=== PATIENT | male | born 1970 | race Caucasian/White ===

== ENCOUNTER 2021-09-11 16:14 | Observation (INO) | payer BC ==
[2021-09-11] MEDS ORDERED: Aspirin Chewable 81 MG TAB ONE (16:39)
[2021-09-11 17:00] LABS: #Eosinphils 0.6 thou/uL (0.0-0.7); #Lymphocytes 1.7 thou/uL (1.20-3.40); #Monocytes 0.6 thou/uL (0.11-0.59); #Neutrophils 3.8 thou/uL (1.40-6.50); %Basophils 0.4 % (0.0-1.0); %Eosinophils 9.3 % (0.0-10.0); %Lymphocytes 25.2 % (21.0-51.0); %Monocytes 9.2 % (0.0-10.0); %Neutrophils 55.9 % (42.0-75.0); Hemoglobin 19.3 g/dL (14.0-18.0); Mean Corpuscular HGB CONC 35.3 g/dL (32.0-36.0); Mean Corpuscular Hemoglobin 37.3 pg (27.0-31.0); Mean Platelet Volume 7.4 fL (7.4-10.4); Platelet Count 125 thou/uL (130-400); RBC Distribution Width 11.4 % (11.5-14.5); Red Blood Cell (RBC) Count 5.17 mill/uL (4.70-6.10); White Blood Cell (WBC) Count 6.8 thou/uL (4.8-10.8)
[2021-09-11] MEDS ORDERED: Ondansetron PF 4 MG/2 ML Vial ONE (17:01)
[2021-09-11] MEDS ORDERED: Nitroglycerin 2% Ointment 1 INCH/1 GM Packet ONE (17:01)
[2021-09-11] MEDS ORDERED: Morphine 4 MG/ML VIAL ONE (17:01)
[2021-09-11 17:11] LABS: MDiff Complete? YES; Macrocytosis SLIGHT = 6-15 cells (100X) (0-5/hpf); Platelet Morphology Comment Appears Decreased
[2021-09-11 17:22] LABS: ALT (SGPT) 55 U/L (8-55); AST (SGOT) 43 U/L (5-34); Albumin 4.2 g/dL (3.5-5.0); Alkaline Phosphatase 37 U/L (40-110); Anion Gap 15 mmol/L (10-20); BUN (Urea Nitrogen) 11 mg/dL (8.4-25.7); Bilirubin, Total 0.7 mg/dL (0.2-1.2); Calc. Creatinine Clearance 0 mL/min (70-130); Calcium 10.3 mg/dL (7.8-10.44); Carbon Dioxide 23 mmol/L (22-29); Chloride 102 mmol/L (98-107); Globulin 3.6 g/dL (2.4-3.5); Glucose 104 mg/dL (70-105); Lipase 98 U/L (8-78); Potassium 3.9 mmol/L (3.5-5.1); Protein, Total 7.8 g/dL (6.0-8.3); Sodium 136 mmol/L (136-145)
[2021-09-11 20:45] VITALS: BMI 27.8
[2021-09-11 20:50] LABS: Troponin I Less than 0.010 ng/mL (< 0.028)
[2021-09-11] MEDS ORDERED: Acetaminophen 325 MG TAB PO PRN (21:45)
[2021-09-11] MEDS ORDERED: Ondansetron PF 4 MG/2 ML Vial IVP PRN (21:45)
[2021-09-11] MEDS ORDERED: Ondansetron ODT 4 MG TAB SL PRN (21:45)
[2021-09-11] MEDS ORDERED: Nitroglycerin 0.4 MG TAB (25 Tab Bottle) SL PRN (21:53)
[2021-09-11] MEDS ORDERED: Acetaminophen 650 MG Suppository PR PRN (21:53)
[2021-09-11] MEDS ORDERED: Lorazepam 1 MG TAB PO PRN (22:38)
[2021-09-11] MEDS ORDERED: EFAVIRENZ PO SCH (22:39)
[2021-09-11] MEDS ORDERED: EMTRICITAB PO SCH (22:39)
[2021-09-11] MEDS ORDERED: TENOFOVIR PO SCH (22:39)
[2021-09-11] MEDS ORDERED: Emtricitabine/Tenofovir 200-300 MG TAB PO SCH (23:15)
[2021-09-11 23:26] LABS: Troponin I Less than 0.010 ng/mL (< 0.028)
[2021-09-11] MEDS ORDERED: Valsartan 80 MG TAB PO SCH (23:30)
[2021-09-12 05:44] LABS: Anion Gap 13 mmol/L (10-20); BUN (Urea Nitrogen) 11 mg/dL (8.4-25.7); Calc. Creatinine Clearance 109 mL/min (70-130); Calcium 8.8 mg/dL (7.8-10.44); Carbon Dioxide 24 mmol/L (22-29); Chloride 106 mmol/L (98-107); Glucose 100 mg/dL (70-105); Potassium 4.5 mmol/L (3.5-5.1); Sodium 138 mmol/L (136-145)
[2021-09-12 05:45] LABS: #Eosinphils 0.5 thou/uL (0.0-0.7); #Lymphocytes 1.7 thou/uL (1.20-3.40); #Monocytes 0.6 thou/uL (0.11-0.59); #Neutrophils 3.9 thou/uL (1.40-6.50); %Basophils 0.5 % (0.0-1.0); %Eosinophils 7.9 % (0.0-10.0); %Lymphocytes 25.5 % (21.0-51.0); %Monocytes 8.7 % (0.0-10.0); %Neutrophils 57.4 % (42.0-75.0); Hemoglobin 16.9 g/dL (14.0-18.0); Mean Corpuscular HGB CONC 33.7 g/dL (32.0-36.0); Mean Platelet Volume 7.5 fL (7.4-10.4); Platelet Count 112 thou/uL (130-400); RBC Distribution Width 11.4 % (11.5-14.5); Red Blood Cell (RBC) Count 4.69 mill/uL (4.70-6.10); White Blood Cell (WBC) Count 6.7 thou/uL (4.8-10.8)
[2021-09-12 07:03] LABS: Cardiac Risk 3.3 (Less than 4.5)
[2021-09-12] MEDS ORDERED: FLUoxetine HCl 20 MG CAP PO SCH (09:00)
[2021-09-12] MEDS ORDERED: Enoxaparin Sodium 40 MG/0.4 ML SYRINGE SC SCH (09:00)
[2021-09-12] MEDS ORDERED: Aspirin Chewable 81 MG TAB PO SCH (09:00)
[2021-09-12] MEDS ORDERED: ADENOSINE 60 MG/20 ML VIAL ONE (09:31)
[2021-09-12 11:34] VITALS: BP 158/88; TEMP 98.1
[2021-09-12] MEDS ORDERED: Dicyclomine 20 MG TAB PO SCH (15:00)
[2021-09-12] MEDS ORDERED: Emtricitabine/Tenofovir 200-300 MG TAB PO SCH (21:00)
[2021-09-12] MEDS ORDERED: Valsartan 80 MG TAB PO SCH (21:00)
[2021-09-12 21:03] LABS: SARS-CoV-2 PCR by NAA Not Detected (NotDetected)
== END 2021-09-12 14:42 | disposition home or self-care (01) ==
LOC: ERS 16:14 → 2SW 18:44
PROVIDERS: ADMIT Family Medicine; ATTEND Internal Medicine
DX: R07.2 Precordial pain (principal); D75.1 Secondary polycythemia; R74.01 Elevation of levels of liver transaminase levels; I45.10 Unspecified right bundle-branch block; I10 Essential (primary) hypertension; B18.1 Chronic viral hepatitis B without delta-agent; Z79.899 Other long term (current) drug therapy; Z88.8 Allergy status to other drugs, medicaments and biological substances; Z20.822 Contact with and (suspected) exposure to COVID-19
CPT/HCPCS: 36415; 71045; 78452; 80048; 80053; 80061; 83690; 83880; 84484; 85025; 93005; 93017; 94760; 96372; 96374; 96375; A9500; G0378; J0153; J1650; J2270; J2405; U0003; U0005

== ENCOUNTER 2021-10-05 17:30 | Outpatient (CLI) | payer BC ==
[2021-10-05 18:01] LABS: #Basophils 0.1 10x3/uL (0.0-0.2); #Eosinphils 0.6 10x3/uL (0.0-0.5); #Monocytes 0.8 10x3/uL (0.0-1.1); #Neutrophils 4.1 10x3/uL (1.5-8.4); %Basophils 0.7 % (0.0-2.0); %Lymphocytes 23.6 % (18.0-47.0); %Monocytes 11.3 % (0.0-10.0); %Neutrophils 56.1 % (40.0-75.0); Hemoglobin 16.6 g/dL (13.5-17.5); Mean Corpuscular HGB CONC 35.1 g/dL (32.0-36.0); Mean Corpuscular Hemoglobin 35.2 pg (27.0-33.0); Mean Corpuscular Volume 100.4 fl (81.2-95.1); Mean Platelet Volume 9.6 fl (7.4-10.4); Platelet Count 138 10x3/uL (150-450); RBC Distribution Width 12.1 % (11.5-14.5); Red Blood Cell (RBC) Count 4.71 10x6/uL (4.32-5.72); White Blood Cell (WBC) Count 7.3 10x3/uL (3.5-10.5)
[2021-10-05 18:21] LABS: ALT (SGPT) 54 U/L (8-55); AST (SGOT) 47 U/L (5-34); Albumin 4.3 g/dL (3.5-5.0); Alkaline Phosphatase 37 U/L (40-110); Anion Gap 14 mmol/L (10-20); BUN (Urea Nitrogen) 9 mg/dL (8.4-25.7); Bilirubin, Total 0.5 mg/dL (0.2-1.2); Calc. Creatinine Clearance 0 mL/min (70-130); Calcium 9.1 mg/dL (7.8-10.44); Carbon Dioxide 24 mmol/L (22-29); Chloride 104 mmol/L (98-107); Globulin 3.2 g/dL (2.4-3.5); Glucose 107 mg/dL (70-105); Lipase 216 U/L (8-78); Protein, Total 7.5 g/dL (6.0-8.3); Prothrombin Time 10.7 sec (9.5-12.1); Sodium 138 mmol/L (136-145)
[2021-10-05 18:44] LABS: Free T4 (Free Thyroxine) 0.9 ng/dL (0.70-1.48); Thyroid Stimulating Hormone 1.4302 uIU/mL (0.35-4.94)
[2021-10-06 00:24] LABS: SARS-CoV-2 PCR by NAA Not Detected (NotDetected)
== END 2021-10-05 17:31 | disposition home or self-care (01) ==
LOC: LABBT 17:30
PROVIDERS: ATTEND Internal Medicine Cardiovascular Disease
DX: Z01.812 Encounter for preprocedural laboratory examination (principal); R07.9 Chest pain, unspecified; Z20.822 Contact with and (suspected) exposure to COVID-19
CPT/HCPCS: 80053; 82105; 83690; 84439; 84443; 85025; 85610; U0003; U0005

== ENCOUNTER 2021-10-08 05:59 | Day surgery (SDC) | payer BC ==
[2021-10-06 09:39] VITALS: BMI 27.7
[2021-10-08] MEDS ORDERED: Lidocaine 1% (PF) 30 ML VIAL ONE (06:28)
[2021-10-08] MEDS ORDERED: Nitroglycerin 100MG/250ML BOT 250 ML ONE (06:32)
[2021-10-08] MEDS ORDERED: Heparin 10,000 UNITS/ 10 ML VIAL ONE (06:32)
[2021-10-08] MEDS ORDERED: Verapamil 5 MG/2 ML VIAL ONE (06:32)
[2021-10-08] MEDS ORDERED: Midazolam HCl 2 mg/2 ml Vial ONE (07:17)
[2021-10-08] MEDS ORDERED: Fentanyl 100 MCG/2 ML VIAL ONE (07:17)
[2021-10-08 07:26] LABS: Cardiac Risk 2.9 (Less than 4.5)
[2021-10-08] MEDS ORDERED: Iopamidol 370 76% 100 ML VIAL ONE (09:24)
== END 2021-10-08 10:28 | disposition home or self-care (01) ==
LOC: SDC 05:59
PROVIDERS: ATTEND Internal Medicine Cardiovascular Disease
PROC: 4A023N7 Measurement of Cardiac Sampling and Pressure, Left Heart, Percutaneous Approach (ICD-10-PCS; principal; 2021-10-08)
DX: R07.9 Chest pain, unspecified (principal); R06.02 Shortness of breath; I10 Essential (primary) hypertension; Z79.899 Other long term (current) drug therapy; Z88.8 Allergy status to other drugs, medicaments and biological substances
CPT/HCPCS: 80061; 93458; 99152; J1644; J2001; J2250; J3010

== ENCOUNTER 2021-10-25 08:28 | Outpatient (CLI) | payer BC ==
[2021-10-25] MEDS ORDERED: Magnevist 469MG/ML 20 ML VIAL ONE (15:07)
== END 2021-10-25 08:29 | disposition home or self-care (01) ==
LOC: MRI 08:28
PROVIDERS: ATTEND Internal Medicine
DX: B18.1 Chronic viral hepatitis B without delta-agent (principal); K52.9 Noninfective gastroenteritis and colitis, unspecified; K74.60 Unspecified cirrhosis of liver; R74.8 Abnormal levels of other serum enzymes; I85.00 Esophageal varices without bleeding; K76.6 Portal hypertension; D73.89 Other diseases of spleen
CPT/HCPCS: 74183; A9579

== ENCOUNTER 2022-03-31 06:00 | Day surgery (SDC) | payer BC ==
[2022-03-30 09:37] VITALS: BMI 29.7
[2022-03-31] MEDS ORDERED: fentaNYL Citrate/PF 100 MCG/2 ML SYRINGE ONE (06:36)
[2022-03-31] MEDS ORDERED: Lidocaine 2% PF 5 ML VIAL ONE (06:58)
[2022-03-31] MEDS ORDERED: Bupivacaine/Epinephrine 0.25% 30 ML VIAL ONE (06:58)
[2022-03-31] MEDS ORDERED: cefOXitin 2 GM VIAL ONE (07:19)
[2022-03-31] MEDS ORDERED: Sodium Chloride 0.9% 100 ML ONE (07:19)
[2022-03-31] MEDS ORDERED: Famotidine/PF 20 mg/2ml Vial ONE (07:21)
[2022-03-31] MEDS ORDERED: Midazolam HCl 2 mg/2 ml Vial ONE (07:21)
[2022-03-31] MEDS ORDERED: PHENYLEPHRINE-NS 100 MCG/ML 10 ML SYRINGE ONE (07:50)
[2022-03-31] MEDS ORDERED: PROPOFOL 200 MG/20 ML VIAL ONE (07:50)
[2022-03-31] MEDS ORDERED: Glycopyrrolate 0.2 MG/ML 5 ML SYRINGE ONE (07:50)
[2022-03-31] MEDS ORDERED: NEOSTIGMINE 3 MG/3 ML SYR 3 MG/3 ML SYRINGE ONE (07:50)
[2022-03-31] MEDS ORDERED: Dexamethasone 20 MG/5 ML VIAL ONE (07:50)
[2022-03-31] MEDS ORDERED: Ondansetron PF 4 MG/2 ML Vial ONE (07:50)
[2022-03-31] MEDS ORDERED: Rocuronium Bromide 10 MG/ML (10ML VIAL) ONE (07:50)
[2022-03-31] MEDS ORDERED: hydrALAZINE 20 MG/ML VIAL ONE (08:32)
[2022-03-31] MEDS ORDERED: FENTANYL 50 MCG/ML VIAL 50 MCG/ML VIAL ONE ×3 (08:43→09:21)
== END 2022-03-31 10:16 | disposition home or self-care (01) ==
LOC: SDC 06:00
PROVIDERS: ATTEND Surgery
PROC: 0DBP7ZX Excision of Rectum, Via Natural or Artificial Opening, Diagnostic (ICD-10-PCS; principal; 2022-03-31)
DX: D01.3 Carcinoma in situ of anus and anal canal (principal); K64.9 Unspecified hemorrhoids; Z79.899 Other long term (current) drug therapy; Z88.8 Allergy status to other drugs, medicaments and biological substances
CPT/HCPCS: 88305; 88341; 88342; J0360; J0694; J1100; J2001; J2250; J2405; J2704; J3010; J3490; S0028

== ENCOUNTER 2022-04-22 07:19 | Outpatient (CLI) | payer BC | END 2022-04-22 07:20 | disposition home or self-care (01) | LOC: ULT 07:19 | PROVIDERS: ATTEND Internal Medicine | DX: K62.82 Dysplasia of anus (principal); B18.1 Chronic viral hepatitis B without delta-agent; K74.60 Unspecified cirrhosis of liver; R19.7 Diarrhea, unspecified; K76.6 Portal hypertension | CPT/HCPCS: 76700 ==

== ENCOUNTER 2022-05-11 08:22 | Outpatient (CLI) | payer BC ==
[2022-05-11] MEDS ORDERED: Iopamidol 370 76% 100 ML VIAL ONE (11:07)
== END 2022-05-11 08:23 | disposition home or self-care (01) ==
LOC: CT 08:22
PROVIDERS: ATTEND Student in an Organized Health Care Education/Training Program
DX: K11.8 Other diseases of salivary glands (principal)
CPT/HCPCS: 70491; Q9967

== ENCOUNTER 2022-05-26 15:17 | Outpatient (CLI) | payer BC ==
[2022-05-26 15:53] LABS: Hemoglobin 15.3 g/dL (13.5-17.5); Mean Corpuscular HGB CONC 35.4 g/dL (32.0-36.0); Mean Corpuscular Hemoglobin 34.9 pg (27.0-33.0); Mean Corpuscular Volume 98.4 fl (81.2-95.1); Mean Platelet Volume 9.8 fl (7.4-10.4); Platelet Count 117 10x3/uL (150-450); RBC Distribution Width 12.2 % (11.5-14.5); Red Blood Cell (RBC) Count 4.39 10x6/uL (4.32-5.72)
[2022-05-26 15:56] LABS: INR-International Normal Ratio 1.1; PTT 25.2 sec (22.0-33.0); Prothrombin Time 11.4 sec (9.5-12.1)
[2022-05-26 15:59] LABS: ALT (SGPT) 39 U/L (8-55); AST (SGOT) 41 U/L (5-34); Alkaline Phosphatase 35 U/L (40-110); Anion Gap 14 mmol/L (10-20); BUN (Urea Nitrogen) 16 mg/dL (8.4-25.7); Bilirubin, Direct 0.3 mg/dL (0.1-0.3); Bilirubin, Total 0.6 mg/dL (0.2-1.2); Calc. Creatinine Clearance 0 mL/min (70-130); Calcium 8.7 mg/dL (7.8-10.44); Carbon Dioxide 22 mmol/L (22-29); Chloride 107 mmol/L (98-107); Estimated GFR 67; Glucose 99 mg/dL (70-105); Potassium 4.3 mmol/L (3.5-5.1); Protein, Total 6.9 g/dL (6.0-8.3); Sodium 139 mmol/L (136-145)
== END 2022-05-26 15:18 | disposition home or self-care (01) ==
LOC: LABBT 15:17
PROVIDERS: ATTEND Student in an Organized Health Care Education/Training Program
DX: Z01.818 Encounter for other preprocedural examination (principal); K11.8 Other diseases of salivary glands; R22.1 Localized swelling, mass and lump, neck; R09.81 Nasal congestion
CPT/HCPCS: 80048; 80076; 85027; 85610; 85730; 93005; 93010

== ENCOUNTER 2022-05-31 06:03 | Day surgery (SDC) | payer BC ==
[2022-05-26 13:24] VITALS: BMI 29.0
[2022-05-31] MEDS ORDERED: Lidocaine 1% (PF) 30 ML VIAL ONE (07:53)
[2022-05-31] MEDS ORDERED: EPINEPHrine 1 MG/ML AMP ONE (07:53)
[2022-05-31] MEDS ORDERED: Fentanyl 250 MCG/5 ML VIAL ONE (07:55)
[2022-05-31] MEDS ORDERED: CEFAZOLIN 2 GM VIAL ONE (08:01)
[2022-05-31] MEDS ORDERED: Sodium Chloride 0.9% 100 ML ONE (08:01)
[2022-05-31] MEDS ORDERED: NEOSTIGMINE 3 MG/3 ML SYR 3 MG/3 ML SYRINGE ONE (08:10)
[2022-05-31] MEDS ORDERED: Glycopyrrolate 0.2 MG/ML 5 ML SYRINGE ONE (08:10)
[2022-05-31] MEDS ORDERED: Dexamethasone 20 MG/5 ML VIAL ONE (08:10)
[2022-05-31] MEDS ORDERED: ePHEDrine 50 MG/ML VIAL ONE (08:10)
[2022-05-31] MEDS ORDERED: PHENYLEPHRINE-NS 100 MCG/ML 10 ML SYRINGE ONE (08:10)
[2022-05-31] MEDS ORDERED: Ondansetron PF 4 MG/2 ML Vial ONE ×2 (08:10)
[2022-05-31] MEDS ORDERED: Rocuronium Bromide 10 MG/ML (10ML VIAL) ONE (08:10)
[2022-05-31] MEDS ORDERED: PROPOFOL 200 MG/20 ML VIAL ONE (08:10)
[2022-05-31] MEDS ORDERED: Phenylephrine 10 MG/ML VIAL ONE (08:42)
[2022-05-31] MEDS ORDERED: Fentanyl 100 MCG/2 ML VIAL ONE (09:42)
== END 2022-05-31 11:30 | disposition home or self-care (01) ==
LOC: SDC 06:03
PROVIDERS: ATTEND Student in an Organized Health Care Education/Training Program
PROC: 0CB80ZZ Excision of Right Parotid Gland, Open Approach (ICD-10-PCS; principal; 2022-05-31)
DX: D11.0 Benign neoplasm of parotid gland (principal); J45.909 Unspecified asthma, uncomplicated; I10 Essential (primary) hypertension; Z79.899 Other long term (current) drug therapy; Z88.8 Allergy status to other drugs, medicaments and biological substances
CPT/HCPCS: 88307; C1776; J0171; J1100; J2001; J2370; J2405; J2704; J3010; J3490

== ENCOUNTER 2023-02-07 09:26 | Outpatient (CLI) | payer BC | END 2023-02-07 09:27 | disposition home or self-care (01) | LOC: ULT 09:26 | PROVIDERS: ATTEND Internal Medicine | DX: B18.1 Chronic viral hepatitis B without delta-agent (principal); K74.60 Unspecified cirrhosis of liver; K76.6 Portal hypertension; R19.7 Diarrhea, unspecified; R16.1 Splenomegaly, not elsewhere classified | CPT/HCPCS: 76700 ==

== ENCOUNTER 2023-08-15 08:52 | Emergency (ER) | payer BC ==
[2023-08-15 10:38] LABS: #Eosinphils 0.2 thou/uL (0.0-0.7); #Monocytes 0.5 thou/uL (0.11-0.59); #Neutrophils 2.9 thou/uL (1.40-6.50); %Basophils 0.6 % (0.0-1.0); %Eosinophils 4.4 % (0.0-10.0); %Lymphocytes 24.8 % (21.0-51.0); %Monocytes 10.8 % (0.0-10.0); Hematocrit 43.4 % (42.0-52.0); Hemoglobin 15.4 g/dL (14.0-18.0); Mean Corpuscular HGB CONC 35.5 g/dL (32.0-36.0); Mean Corpuscular Hemoglobin 35.2 pg (27.0-31.0); Mean Corpuscular Volume 99.3 fl (78.0-98.0); Mean Platelet Volume 10.7 fL (7.4-10.4); Platelet Count 113 10x3/uL (130-400); RBC Distribution Width 12.1 % (11.5-14.5); Red Blood Cell (RBC) Count 4.37 mill/uL (4.70-6.10)
[2023-08-15 10:54] LABS: ALT (SGPT) 25 U/L (8-55); AST (SGOT) 30 U/L (5-34); Albumin 3.5 g/dL (3.5-5.0); Alkaline Phosphatase 24 U/L (40-110); Anion Gap 15 mmol/L (10-20); BUN (Urea Nitrogen) 16 mg/dL (8.4-25.7); Bilirubin, Total 0.9 mg/dL (0.2-1.2); Calc. Creatinine Clearance 0 mL/min (70-130); Calcium 9.1 mg/dL (7.8-10.44); Carbon Dioxide 22 mmol/L (22-29); Chloride 100 mmol/L (98-107); Estimated GFR 40; Globulin 2.9 g/dL (2.4-3.5); Glucose 117 mg/dL (70-105); Magnesium 1.7 mg/dL (1.6-2.6); Potassium 3.7 mmol/L (3.5-5.1); Protein, Total 6.4 g/dL (6.0-8.3); Sodium 133 mmol/L (136-145)
[2023-08-15 11:10] LABS: CellaVision Operator ID LAB.KW3; Platelet Adequacy Comment Platelets Decreased; RBC Morphology Within Normal Limits
== END 2023-08-15 11:31 | disposition home or self-care (01) ==
LOC: ERS 08:52
DX: I95.9 Hypotension, unspecified (principal)
CPT/HCPCS: 71045; 80053; 83735; 84484; 85025; 93005; 96360; 96361

== ENCOUNTER 2024-06-10 20:18 | Emergency (ER) | payer BC ==
[2024-06-10] MEDS ORDERED: Ampicillin/Sulbactam 3 GM VIAL ONE (20:50)
[2024-06-10] MEDS ORDERED: Sodium Chloride 0.9% 100 ML ONE (20:50)
== END 2024-06-10 23:30 | disposition short-term general hospital (02) ==
LOC: ERS 20:18
DX: S01.112A Laceration without foreign body of left eyelid and periocular area, initial encounter (principal); S09.12XA Laceration of muscle and tendon of head, initial encounter; S09.90XA Unspecified injury of head, initial encounter; I10 Essential (primary) hypertension; W01.198A Fall on same level from slipping, tripping and stumbling with subsequent striking against other object, initial encounter
CPT/HCPCS: 70450; 70486; 96374; J0295

== ENCOUNTER 2025-05-21 08:21 | Observation (INO) | payer BC ==
[2025-05-21] MEDS ORDERED: Dexamethasone 10 MG/ML VIAL ONE (08:38)
[2025-05-21] MEDS ORDERED: Ondansetron PF 4 MG/2 ML Vial ONE (08:58)
[2025-05-21 09:04] LABS: ALT (SGPT) 25 U/L (Less than 45); AST (SGOT) 42 U/L (11-34); Albumin 3.3 g/dL (3.1-4.5); Alkaline Phosphatase 25 U/L (40-110); Anion Gap 16 mmol/L (10-20); BUN (Urea Nitrogen) 10 mg/dL (8.4-25.7); Bilirubin, Total 0.6 mg/dL (0.3-1.2); CK (CPK) 344 U/L (30-200); Calc. Creatinine Clearance 0 mL/min (70-130); Calcium 8.4 mg/dL (7.8-10.44); Carbon Dioxide 24 mmol/L (22-29); Chloride 101 mmol/L (98-107); Globulin 2.9 g/dL (2.4-3.5); Glucose 138 mg/dL (70-105); Lipase 27 U/L (8-78); Potassium 4.0 mmol/L (3.5-5.1); Sodium 137 mmol/L (136-145)
[2025-05-21 09:40] LABS: #Basophils 0.06 10x3/uL (0.0-0.2); #Eosinophils 0.19 10x3/uL (0.0-0.7); #Monocytes 0.59 10x3/uL (0.11-0.59); #Neutrophils 2.94 10x3/uL (1.40-6.50); %Basophils 1.2 % (0.0-1.0); %Eosinophils 3.7 % (0.0-10.0); %Lymphocytes 26.6 % (21.0-51.0); %Monocytes 11.4 % (0.0-10.0); %Neutrophils 56.9 % (42.0-75.0); Hematocrit 42.1 % (42.0-52.0); Hemoglobin 14.3 g/dL (14.0-18.0); Mean Corpuscular Hemoglobin 32.8 pg (27.0-31.0); Mean Corpuscular Volume 96.6 fL (78.0-98.0); Platelet Count 116 10x3/uL (130-400); Red Blood Cell (RBC) Count 4.36 mill/uL (4.70-6.10); White Blood Cell (WBC) Count 5.16 10x3/uL (4.8-10.8)
[2025-05-21 09:50] LABS: INR-International Normal Ratio 1.2; PTT 28.2 sec (22.9-36.1); Prothrombin Time 15.2 sec (12.0-14.7)
[2025-05-21 10:16] LABS: Macrocytosis SLIGHT = 6-15 cells HPF (0-5); Platelet Adequacy Comment Platelets Decreased; Polychromasia SLIGHT = 2-3 cells HPF (0-2)
[2025-05-21] MEDS ORDERED: Melatonin 3 MG TAB PO PRN (10:35)
[2025-05-21] MEDS ORDERED: Senokot S 8.6-50 MG TAB PO PRN (10:35)
[2025-05-21] MEDS ORDERED: Acetaminophen 325 MG TAB PO PRN (10:35)
[2025-05-21] MEDS ORDERED: Guaifenesin DM 100-10/5 ML UDCUP PO PRN (10:35)
[2025-05-21 11:35] VITALS: BP 152/88; TEMP 97.4
[2025-05-21 11:35] LABS: Bacteria/HPF None Seen HPF (None Seen); CAUTI Indications for Culture Alt mental st,lethar; Glucose, Urine (Dipstick) Normal (Negative); Leukocyte Negative Leu/uL (Negative); Protein, Urine (Dipstick) Negative (Neg-Trace); RBC/HPF 0-3 HPF (0-3); Specific Gravity, Urine 1.010 (1.002-1.036); WBC/HPF 0-3 HPF (0-3)
[2025-05-21 11:38] LABS: Urine Culture Reflex No No
[2025-05-21 12:50] VITALS: BMI 31.1
[2025-05-21] MEDS ORDERED: Carvedilol 25 MG TAB PO SCH (21:00)
[2025-05-21] MEDS ORDERED: BIKTARVY 50-200-25 MG TABLET PO SCH (21:00)
[2025-05-21] MEDS ORDERED: Famotidine 20 MG TAB PO SCH (21:00)
[2025-05-22] MEDS ORDERED: Enoxaparin 40 MG (0.4 mL) SYRINGE SC SCH (09:00)
== END 2025-05-21 19:18 | disposition home or self-care (01) ==
LOC: ERS 08:21 → OBS 10:10
PROVIDERS: ADMIT Family Medicine; ATTEND Family Medicine
PROC: B24BZZZ Ultrasonography of Heart with Aorta (ICD-10-PCS; principal; 2025-05-21)
DX: I95.9 Hypotension, unspecified (principal); I08.1 Rheumatic disorders of both mitral and tricuspid valves; I10 Essential (primary) hypertension; K58.9 Irritable bowel syndrome, unspecified; Z90.89 Acquired absence of other organs; Z98.890 Other specified postprocedural states; Z88.8 Allergy status to other drugs, medicaments and biological substances; Z79.899 Other long term (current) drug therapy
CPT/HCPCS: 36415; 36416; 71045; 80053; 81001; 82140; 82550; 83605; 83690; 83880; 84443; 84484; 85025; 85379; 85610; 85730; 87040; 87428; 93005; 93306; 93880; 96374; 96375; G0378; J1100; J2405; J7030